=== PATIENT | female | born 1935 | race Caucasian/White ===

== ENCOUNTER → 2022-01-30 | Outpatient (CLI) | payer MEDICARE ==
[~2022-01-30] MED LIST: ATACAND; COUM1TAB18; CYMB1CAP5; LANO0.1211; NEXI1CAP3; NITR0.4S; NORV5TAB; PERC5TAB8; TENO25TA; THERGRAN; WARF5VL; rhinocort
== END ==
LOC: M CARPUL 09:03
PROVIDERS: ATTEND Internal Medicine Cardiovascular Disease
DX: I27.81 Cor pulmonale (chronic) (principal); I35.9 Nonrheumatic aortic valve disorder, unspecified